=== PATIENT | female | born 1945 | race Caucasian/White ===

== ENCOUNTER 2017-02-14 05:23 | Day surgery (SDC) | payer MEDICARE ==
[2017-02-13 14:32] LABS: HEMOGLOBIN 13.8 g/dL (12-16); MCH 30.1 pg (26.0-34.0); MCHC 33.7 g/dL (31.0-37.0); MCV 89.5 fL (80.0-100.0); MEAN PLATELET VOLUME 10.3 fL (7.4-10.4); RBC 4.58 10x6/uL (4.00-5.40); WBC 6.6 10x3/uL (4.8-10.8)
[2017-02-14 10:38] VITALS: BP 145/81; BMI 24.9
--- NOTE | 2017-02-14 17:21 | NUR ---
1615 IV DC WITH CATHER TIP INTACT
--- NOTE | 2017-02-15 09:28 | OP ---
PATIENT NAME: HAMILTON MCCOY MEDICAL RECORD: [id number] :43 LOCATION:D[facility]OPS ADMISSION DATE: SURGEON: DOMINIC BROCK MD DATE OF OPERATION: 02/14/2017 SURGEON: Dominic Brock MD ANESTHESIA: MAC by Angelia Sorensen CRNA DIAGNOSES: Urethral stricture, incomplete bladder emptying. FINDINGS: Very inflamed bladder with glomerulations. Single ureteral orifices bilaterally. Grade I cystocele. Urethral stricture. PROCEDURE: Cystoscopy and urethral dilation to 34-[place]. CLINICAL HISTORY: This is a 71-year-old female, who has issues with recurrent urinary tract infections and incomplete bladder emptying. When we saw her in the office, her postvoid residual was over 200 mL. She comes now to have a potential urethral stricture dilated. She was covered with perioperative antibiotics. DESCRIPTION OF PROCEDURE: The patient was given IV sedation. She was then placed in the dorsal lithotomy position and prepped and draped. A 17-[place] cystoscope with 30-degree lens was used for visualization. The bladder was highly inflamed with glomerulations. No bladder tumors were seen. Single ureteral orifice was seen bilaterally. There was a grade I cystocele present. The bladder was emptied through the cystoscope sheath. The scope was then removed. We then used sounds from 18-[place] and progressively worked our way up to 34-[place]. The patient was then brought to the recovery room and discharged to home. I will see her in followup in 1-2 weeks' time to check on her postvoid residual. TRANSINT:[id number] Voice Confirmation ID: [id number] DOCUMENT ID: [id number] DOMINIC BROCK MD at 0928 CC: [id number] DICTATION DATE: 02/14/17 1542 TRANSPORTATION MAINTENANCE WORKER: 02/14/17 1637 [facility] 02/14/17 [place] [id number]
== END 2017-02-14 16:30 | disposition home or self-care (01) ==
LOC: D.OPS 05:23 → D.PAN 12:00 → D.OPS 16:30
PROVIDERS: Anesthesiology
DX: N35.9 Urethral stricture, unspecified (principal); N81.10 Cystocele, unspecified; R33.8 Other retention of urine; Z01.812 Encounter for preprocedural laboratory examination

== ENCOUNTER → 2017-03-03 11:58 | Outpatient (CLI) | payer MEDICARE ==
[2017-02-14 10:38] VITALS: BMI 24.9
== END | disposition home or self-care (01) ==
LOC: D.CT 11:30
DX: R33.9 Retention of urine, unspecified (principal)

== ENCOUNTER → 2017-07-13 18:03 | Outpatient (CLI) | payer MEDICARE | END | disposition home or self-care (01) | LOC: D.MAMMO 13:00 | DX: Z12.31 Encounter for screening mammogram for malignant neoplasm of breast (principal) ==